=== PATIENT | female | born 2000 | race Caucasian/White ===

== ENCOUNTER 2023-04-02 14:00 | Outpatient (CLI) | payer OTHER ==
[2023-04-02 19:52] LABS: INFECTIOUS MONONUCLEOSIS NEGATIVE (Negative)
== END 2023-04-02 14:01 | disposition home or self-care (01) ==
LOC: LAB.S 14:00
PROVIDERS: ATTEND Registered Nurse
DX: J02.9 Acute pharyngitis, unspecified (principal); R59.0 Localized enlarged lymph nodes; R53.83 Other fatigue
CPT/HCPCS: 86308